=== PATIENT | female | born 2000 | race Two or more races ===

== ENCOUNTER 2024-02-29 22:38 | Emergency (ER) | payer OTHER ==
[~2024-02-29] VITALS: Ht 162.6 cm; Wt 58.2 kg
[2024-02-29 22:52] VITALS: BP 135/89; PULSE 118; RESP 16; TEMP 98.4
[2024-02-29] MEDS ORDERED: PNV1TABL17 PO (22:55)
[2024-02-29] MEDS: ONDANSETRON HCL 4 MG TABLET PO ONE (23:38)
[2024-02-29] MEDS: DiphenhydrAMINE HCL 25 MG CAPSULE PO ONE (23:38)
== END 2024-03-01 00:42 | disposition home or self-care (01) ==
LOC: EMS 22:41
DX: O30.002 Twin pregnancy, unspecified number of placenta and unspecified number of amniotic sacs, second trimester (principal); F41.9 Anxiety disorder, unspecified; Z3A.15 15 weeks gestation of pregnancy
CPT/HCPCS: 99283; Q0162